=== PATIENT | female | born 2000 | race Caucasian/White ===

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

== ENCOUNTER 2022-01-02 07:28 | Day surgery (SDC) | payer OTHER, SELFPAY ==
[2022-01-02] VITALS (16 sets, daily range): BP systolic 97–120; BP diastolic 5–92; PULSE 64–110; RESP 14–16; TEMP 36.4–36.8; O2SAT 100; BMI 21.4
[2022-01-02] MEDS: LACTATED RINGERS 1000 ML 1,000 ML 100 ML IV (08:05)
[2022-01-02] MEDS: SODIUM CHLORIDE 0.9 % (FLUSH) 10 ML SYRINGE IVF (08:05)
[2022-01-02 08:17] LABS: Ur HCG Qualitative* Negative (Negative)
--- NOTE | 2022-01-02 08:49 | SUR.PREOP ---
TIME?OUT:?0850 PT/RN/MDA?VERIFICATION?OF?SURGICAL?SITE,?PROCEDURE,?AND?CONSENT OBTAINED?PRIOR?TO?INVASIVE?PROCEDURE.
[2022-01-02] MEDS: fentaNYL 100 MCG/2 ML inj IVP (08:52)
[2022-01-02] MEDS: MIDAZOLAM HCL 1 MG/ML inj IVP (08:52)
[2022-01-02] MEDS: CEFAZOLIN 2 GM in 0.9 % SODIUM CHLORIDE Mini-bag 100 ML IVPB (09:15)
--- NOTE | 2022-01-02 11:01 | XR_ITS ---
Patient: BRONWYN GUZMAN Facility:?[facility] Patient ID:?[id number] Site Patient ID:?[id number]. Site :?[id number] Study:?XRay-Knee Left WITH C-ARM-01/02/2022 11:26:45 AM Ordering Physician:?July Saini Final Report: INDICATION: Intra op left ACL repair. TECHNIQUE: Intraoperative C-arm fluoroscopy. IMPRESSION: Intraoperative C-arm fluoroscopy was provided. Fluoroscopy time 2.8 seconds. 1 image was captured. Dictated by Marcin Mackey MD @ 01/05/2022 4:46:07 PM Signed by:?Marcin Mackey MD @01/05/2022 4:46:07 PM (Electronic Signature)
--- NOTE | 2022-01-02 12:18 | P.ORPRC_ITS ---
Procedure Note Date of procedure: 01/02/22 Procedure: PREOPERATIVE DIAGNOSIS: 1. Left knee ACL retear, acute POSTOPERATIVE DIAGNOSIS: 1. Left knee ACL retear,, acute 2. 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 PROCEDURE: 1. Left knee arthroscopic ACL revision reconstruction with quad tendon autograft via independent anatomic tunnel drilling technique (low anteromedial portal) + internal brace SURGEON: Parveen Mcdowell M.D. TELEVISION SCRIPT WRITER: Anastacio Mendoza PA-C; Basilio GONSALEZ. Of note, an phys assistant was critical for this case to aid in patient positioning, knee manipulation, instrument exchange, graft preparation, camera assistance, and closure. ANESTHESIA: Spinal plus adductor canal block EBL: 30 mL TOURNIQUET: 120 minutes at 230 torr IMPLANTS: Arthrex tight rope femoral fixation; tibial button for tibial fix ation. 4.75 mm BioComposite SwiveLock suture anchor for internal brace anchoring COMPLICATIONS: None evident INDICATIONS: The patient is a pleasant 21-year-old female. They experienced a left knee ACL disruption injury and underwent BTB autograft reconstruction in 2018. She did well for number of years. 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 Unfortunately, in recent time she experienced another instability event with her knee giving way. Physical exam was consistent with MRI which revealed ACL retear. Given her desire to remain physically active with pole vaulting and other sport activities, I do think surgery is indicated for a revision reconstruction. Quad tendon autograft as planned. FINDINGS: Exam under anesthesia revealed positive Cassandra's showing grade 2 B. Positive pivot shift with a thud clunk. The diagnostic arthroscopy showed grade 3 chondromalacia superior pole patella. Grade 1-2 trochlear groove. Intact medial and lateral meniscus. Other chondral surfaces were intact and healthy. PCL was intact robust. The ligament of [place]risberg Cronin visible and intact. Posterior meniscal roots intact. ACL was torn midsubstance. Both the femoral and tibial attachments were saez. There was a hemorrhagic bunch of tissue from the ACL that had fallen into the anterior central portion of the knee. DESCRIPTION OF PROCEDURE: After a thorough discussion of risks, benefits, and alternatives, the patient was brought to the operating room and placed upon the operating table. Induction of anesthesia was undertaken as previously noted. 1 g IV Ancef was administered within 1 hr of incision preoperatively. Appropriate time-out was performed identifying proper patient, site, and procedure. The left lower extremity was prepped and draped in the appropriate sterile fashion using ChloraPrep. The limb was exsanguinated and tourniquet inflated. Anterolateral and anteromedial portals were established with an 11 blade, and a diagnostic arthroscopy was performed. This identified the findings as noted above. Following the diagnostic arthroscopy, chondroplasty of the patella was performed of the loose chondral flaps with a torpedo shaver. We then turned attention to harvesting the quad tendon autograft. A transverse incision was made just superior to the proximal patellar pole. Sharp incision through skin and through subcutaneous tissue allowed us to resect the fat pad overlying the quad tendon distally. A Hanks elevator with a Ray-Seth allowed us to mobilize the subcutaneous tissue then more proximally along the quad tendon. We had excellent visualization of the quad tendon. The scope was placed into this space to confirm trajectory and 65 mm target of tissue capturing. A 15 blade was then utilized to incise the quad tendon at the superior pole patella. It was released from the patella and captured with a fiber loop. We then incised the graft further proximal and used the quad tendon barrel and receiver aligner to help mobilize the tissue approximately 68-70 mm. The graft was cut at this length and subsequent prepared on the back table. Excellent graft bulk and length was obtained. A 9.5 mm femoral tunnel using a 6 mm offset guide on the lateral femoral condyle wall with knee in hyperflexion was used. A low anteromedial portal was utilized for this for to complete anatomic, independent tunnel drilling. The tibial tunnel was then drilled with the appropriate tibial guide utilizing the FlipCutter. The FlipCutter was placed through an anterior medial proximal tibial incision. This was passed into the knee and confirmed to be within the targeted goal of ACL footprint location. The FlipCutter was flipped to 9.5 mm drill and retrograde reamed. The debris was evacuated with the shaver. Sutures were passed and eventually allowed us to pass the graft through the low anteromedial portal. We 1st passed the graft up into the femoral tunnel leaving a few mm to cinch later. We then dunked into the tibial tunnel. The knee was cycled 35+ times. After the button was flipped, C-arm fluoroscopic imaging confirmed the button to be flipped and opposed against the lateral femoral condyle. The internal brace sutures were 1st secured with the knee in full extension with a [place] underneath the internal brace to provide slight release of tension. This was drilled, tapped, and the anchor placed with the internal brace sutures. Following this, the knee was cycled 35 more times and the tibial button applied. The button was placed against the tibia and secured with a knot overlying as a secondary fixation. The femoral sutures then completed tensioning. The graft was found to be in appropriate tension intra articularly in the Cassandra's test restored to negative/normal. At this stage, closure was performed with 0 Vicryl closing the tendon adjacent to the bone harvest, and the core was utilized to fill the patellar defect. As noted above, the bone block was utilized to fill the bone void in the patella. Then, 0 Vicryl was utilized in a running, locking fashion to close the quad tendon. Finally, 2-0 Vicryl and 4-0 Monocryl to close the subcutaneous and subcuticular layers, respectively. Dressings were applied, tourniquet deflated, the patient awoken from anesthesia and transferred to the PACU in stable condition. PLAN: 1. Toe-touch weightbear operative extremity. Crutch / walker ambulation assistance PRN until quad control present at which time may advance to weightbear as tolerated. 2. Ice, acetominophen and/or ibuprofen, and Percocet for pain as needed. 3. Knee range of motion and quad sets/straight leg raise regularly, guided by physical therapy. 4. Follow up with PA visit in 1-2 weeks for a wound check.
--- NOTE | 2022-01-02 12:20 | W.ANESCHARGE ---
Anesthesia Charges Start Date/Time Anesthesia Start Date: 01/02/22 Anesthesia Start Time: 09:03 Stop Date/Time Anesthesia Stop Date: 01/02/22 Anesthesia Stop Time: 12:19 Summary Emergency: No
--- NOTE | 2022-01-02 14:13 | W.PM.NB ---
Nerve Block Nerve Block Time Seen by Provider: 08:45 Date Seen: 01/02/22 Type of block requested by surgeon for post-operative analgesia: femoral Time out performed: Yes Verification of patient name: Yes Verification of date of : Yes Site marking: site marked Name of person performing procedure: Tomasz Caba Continuous monitoring Was continuous monitoring of O2 sat, B/P, cardiac monitor technician, recorded every 15 minutes?: Yes Procedure Checklist: sterile prep, needles and gloves Ultrasound guided. Images saved: Yes Medications given in 5ml increments after negative aspiration: Exparel mL: 20 Needle gauge: 20 Decadron (mg): 10 Precedex (mcg): 25 Patient tolerated procedure well: Yes Block Charges Block Charge (with Pro Fee): Femoral Nerve Use of Ultrasound Machine for Block: Yes- US Guidance/pain block
--- NOTE | 2022-01-02 14:40 | SUR.PHASEII ---
See Bladder Scan and Catheter placement worklist documentation. 700ml output in clear yellow urine.
--- NOTE | 2022-01-02 15:02 | SUR.PHASEII ---
1345: Pt states lower abdominal pain.5/10. More painful on palpation by global technical writer. Patient to restroom via wheelchair. Patient able to void a little. Returned to room and resting in recliner with left leg elevated and ice pack in place. Patient given option for bladder scan or try restroom again in 20 minutes or when she feels able. 1400: Patient tearful and states abdominal pain increasing and becoming more uncomfortable. Patient to restroom independently with crutches. Patient unable to urinate. 1411: Bladder scan of volume 793 mL. 1420: Patient straight cath'd with urine output of 700 mL clear yellow urine. Patient feels immediate relief. Denies abdominal pain post catheterization.
== END 2022-01-02 14:50 | disposition home or self-care (01) ==
PROVIDERS: PCP Family Medicine; Visit Provider Orthopaedic Surgery Sports Medicine
PROC: (CPT 29888; principal; 2022-01-02 09:00)
DX: S83.512A Sprain of anterior cruciate ligament of left knee, initial encounter (principal); M22.42 Chondromalacia patellae, left knee
CPT/HCPCS: 29888; 01400; 51798; 64447; 73560; 76000; 76942; 81025; C1713; J0690; J1100; J2250; J2405; J2704; J2795; J3010; J7120; L1833

== ENCOUNTER 2022-08-28 07:08 | Day surgery (SDC) | payer OTHER, SELFPAY ==
[2022-08-28] VITALS (11 sets, daily range): BP systolic 77–119; BP diastolic 34–81; PULSE 61–87; RESP 16–20; TEMP 36.2–36.7; O2SAT 99–100; BMI 19.9
[2022-08-28 07:45] LABS: Ur HCG Qualitative* Negative (Negative)
[2022-08-28] MEDS: LACTATED RINGERS 1000 ML 1,000 ML 100 ML IV (07:48)
[2022-08-28] MEDS: SODIUM CHLORIDE 0.9 % (FLUSH) 10 ML SYRINGE IVF (07:48)
[2022-08-28] MEDS: CEFAZOLIN 2 GM in 0.9 % SODIUM CHLORIDE Mini-bag 100 ML IVPB (08:37)
--- NOTE | 2022-08-28 09:11 | W.ANESCHARGE ---
Anesthesia Charges Start Date/Time Anesthesia Start Date: 08/28/22 Anesthesia Start Time: 08:27 Stop Date/Time Anesthesia Stop Date: 08/28/22 Anesthesia Stop Time: 10:01
[2022-08-28] MEDS: ROPIVACAINE 0.5% 30 ML 150 MG INJECTION (09:40)
--- NOTE | 2022-08-28 10:06 | W.ANESCHARGE ---
Anesthesia Charges Start Date/Time Anesthesia Start Date: 08/28/22 Anesthesia Start Time: 08:27 Stop Date/Time Anesthesia Stop Date: 08/28/22 Anesthesia Stop Time: 10:01
--- NOTE | 2022-08-28 11:19 | P.ORPRC_ITS ---
Procedure Note Date of procedure: 08/28/22 Procedure: PREOPERATIVE DIAGNOSIS: 1. 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 POSTOPERATIVE DIAGNOSIS: 1. 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 2. 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 Left knee arthroscopic cyclops lesion excision/limited debridement 2. Left knee arthroscopic chondroplasty/osteophyte excision inferior pole patella deep surface SURGEON: Parveen Mcdowell M.D. EATING DISORDER SPECIALIST: Anastacio Mendoza PA-C. Of note, an marketing assistant manager was critical for this case to aid in patient positioning, knee manipulation, instrument exchange, and closure. ANESTHESIA: Spinal EBL: 2ml TOURNIQUET: 30 min at 225 torr COMPLICATIONS: None evident INDICATIONS: The patient is a pleasant 22-year-old female who has experienced left knee pain and limited extension since undergoing ACL revision reconstruction with quad tendon autograft internal brace 12/2021. She has were faced with physical therapy but has not been able to restore full range of motion. Repeat MRI had suspicion of cyclops lesion in the intercondylar notch. Additionally, inferior pole of patella the deep surface showed osteophyte/osteochondral overgrowth. Additionally, attempted nonoperative management has been tried, and failed. Thus, surgery was recommended. FINDINGS: Inferior pole of patella deep surface osteochondral overgrowth/osteophyte. In addition, hemorrhagic cyclops lesion/synovial hypertrophy was noted within the intercondylar notch and anterior surface of the ACL graft. The ACL graft itself appeared to be intact with both proper attachments on both femoral and tibial sides and intact fibers probing. The internal brace suture was identified and found be partially frayed but still intact. Upon debriding the cyclops lesion and the osteophyte off the inferior pole of patella, full extension did appear to be achieved both by view and by palpation. The internal brace suture was probed during full extension did not appear to be excessively tight. This was left in place. Of note, the negative Cassandra exam. Negative posterior drawer. Stable to varus and valgus stress at 0 and 30? after debriding the tissue. It was stable at 10 and 30? preoperatively initially range of motion was 10 ? shy of full extension. After debridement, there was a mutual agreement that full extension could be achieved. The meniscus tissue was intact in both the medial and lateral compartments. Articular surfaces were healthy in the medial and lateral compartments. Grade 2 chondromalacia seen on the undersurface of patella median ridge and lateral facet as well as trochlear groove. DESCRIPTION OF PROCEDURE: After a thorough discussion of risks, benefits, and alternatives, the patient was brought to the operating room and placed upon the operating table. Induction of anesthesia was undertaken as previously noted. 1 g IV Ancef was administered within 1 hr of incision preoperatively. Appropriate time-out was performed identifying proper patient, site, and procedure. The left lower extremity was prepped and draped in the appropriate sterile fashion using ChloraPrep. The limb was exsanguinated and tourniquet inflated. Anterolateral and anteromedial portals were established with an 11 blade, and a diagnostic arthroscopy was performed. This identified the findings as noted above. Following the diagnostic arthroscopy, chondroplasty was performed of osteochondral fragment/osteophyte excision at the inferior pole patella. Additionally, the cyclops lesion was debrided. This was both performed with the torpedo shaver. The internal brace suture was identified, probed, and found to be relaxed but did gain some tension in full extension. However, did not appear to be excessively tight or resisting/restraining full extension. Cassandra test was performed and again found to be stable. This was done both with the camera within the knee is realizing but also outside of the knee. Instruments were removed, excess fluid was drained, and closure performed with 4-0 Monocryl with Steri-Strips. Dressings were applied, the tourniquet deflated, and the patient was awoken from anesthesia and transferred to the PACU in stable condition. PLAN: 1. Weightbear as tolerated operative extremity. Crutch / walker ambulation assistance PRN. Straight leg raise to be initiated starting tomorrow by the patient. 2. Ice, acetominophen and/or ibuprofen, and Percocet for pain as needed. 3. Knee range of motion and quad sets/straight leg raise regularly 4. Follow up with PA visit in 7-10 days for a wound check. Initiate physical therapy at that time to work on full knee extension as the soft tissues are currently in a contracted states that been that way for approximately 8 months.
[2022-08-28] MEDS: IBUPROFEN 200 MG TABLET 400 MG PO (11:20)
== END 2022-08-28 11:41 | disposition home or self-care (01) ==
PROVIDERS: Anesthesiology; PCP Family Medicine; Visit Provider Orthopaedic Surgery Sports Medicine
PROC: (CPT 29870; principal; 2022-08-28 08:30)
DX: T84.498A Other mechanical complication of other internal orthopedic devices, implants and grafts, initial encounter (principal); M25.762 Osteophyte, left knee; M25.562 Pain in left knee; M25.861 Other specified joint disorders, right knee
CPT/HCPCS: 29877; 01400; 81025; A9270; J0690; J1100; J2250; J2405; J2704; J2795; J3010; J7120

== ENCOUNTER 2022-09-24 13:45 | Outpatient (RCR) | payer OTHER, SELFPAY | END 2023-01-22 23:59 | disposition home or self-care (01) | PROVIDERS: PCP Family Medicine; Visit Provider Physician Assistant Surgical | DX: M25.862 Other specified joint disorders, left knee (principal); Z98.890 Other specified postprocedural states; M62.50 Muscle wasting and atrophy, not elsewhere classified, unspecified site; Z51.89 Encounter for other specified aftercare | CPT/HCPCS: 97110; 97112; 97140; 97161 ==